=== PATIENT | female | born 1950 | race Caucasian/White ===

== ENCOUNTER 2024-10-28 18:10 | Inpatient (IN) | payer OTHER, SELFPAY ==
[2024-10-27] VITALS (9 sets, daily range): BP systolic 120–176; BP diastolic 48–89; BMI 27.8
[2024-10-27 16:35] LABS: Hematocrit 41.6 % (37.0-47.0); Hemoglobin 13.7 g/dL (12.0-16.0); Mean Corp Hgb Conc. 32.9 g/dL (33.0-37.0); Mean Corpuscular Volume 93.7 fL (81.0-99.0); Nucleated Red Blood Cells % 0 %; Platelet Count 135 10^3/uL (130-400); Red Cell Dist. Width 13.9 % (11.5-14.5)
[2024-10-27 16:42] LABS: ALT (SGPT) 15 U/L (0-35); AST (SGOT) 22 U/L (14-36); Albumin 4.6 g/dl (3.5-5.0); Alkaline Phosphatase 61 U/L (38-126); Blood Urea Nitrogen 12 mg/dl (7-17); Calcium 9.1 mg/dl (8.4-10.2); Carbon Dioxide 24 mmol/L (22-30); Chloride 104 mmol/L (98-107); Estimated Creatinine Clearance 70 ml/min; Glucose 156 mg/dl (70-99); Lipase 131 U/L (23-300); Potassium 4.0 mmol/L (3.5-5.1); Sodium 135 mmol/L (135-145); Total Protein 7.3 g/dl (6.3-8.2); eGFR > 60.00
[2024-10-27] MEDS: TYLENOL 650 MG PO (17:16)
--- NOTE | 2024-10-27 17:16 | ED.GENMED ---
History of Present Illness
General
Chief Complaint: Fever
Source: patient and family
Time Seen by Provider: 10/27/24 17:00
History of Present Illness
History of Present Illness:
74-year-old female presents to the emergency room for evaluation of fever, chills, weakness, dizziness and diarrhea. Symptoms began yesterday. Last episode of diarrhea was about 6 hours ago. No abdominal pain. No sore throat. Patient denies any
sick contacts. She denies any travel. She denies any recent use of antibiotics.
Phy Exam
Physical Exam
Physical Exam:
General: Awake, Alert, Oriented X3. Appears uncomfortable from fever and chills
Vitals: Febrile
Head: Atraumatic
Eyes: Pupils equal, EOMI
Throat: Airway intact, no exudates
Neck: Trachea midline
Lungs: Clear and equal b/l
Heart: Regular rate, no murmurs
Abd: Soft, no tenderness to palpation, No pulsatile mass
Neuro: Nonfocal
Skin: Warm, dry, no rash
Extremities: pulses equal b/l, no edema
Sepsis
Sepsis Screening
Sepsis Assessment: Sepsis
Sepsis Screen
Sepsis Screen: Sepsis
Date: 10/27/24
Time: 22:41
Course
Orders/Labs/Results
Orders:
Orders
10/27/24 15:49
Electrocardiogram (*1) Urgent
Reason for Study: Chest Pain
EKG- Treatment ONCE
10/27/24 16:13
Complete Blood Count/With Diff Urgent
Comprehensive Metabolic Panel Urgent
Lactic Acid Urgent
Lipase Urgent
Blood Culture Routine
ADELITA Source: Blood/Venous
Specimen Description:
10/27/24 17:04
COVID-19 Antigen Urgent
Source: Nasal Swab
10/27/24 17:11
Acetaminophen [Tylenol] 650 mg PO NOW STA
10/27/24 17:12
0.9% Sodium Chloride 1000 ml [Nss] 1,000 ml IV BOLUS
10/27/24 17:13
STOOL [C difficile Antigen & Toxins] Urgent
ADELITA Source: Feces/Stool
Specimen Description:
Stool Culture Urgent
ADELITA Source: Feces/Stool
Specimen Description:
10/27/24 17:16
Urinalysis Reflex To Culture Urgent
Date Specimen was Collected: 10/27/24
Time Specimen was Collected: 21:24
10/27/24 19:24
CR Chest - 2 Views Urgent
Comment:
Reason For Exam: fever, hypoxia
10/27/24 20:25
CT Abd/pelvis W Iv Cont Urgent
Comment:
Reason For Exam: fever, abd pain
10/27/24 20:34
Ibuprofen [Motrin] 400 mg PO NOW STA
10/27/24 21:16
Norovirus by PCR Urgent
ADELITA Source: Feces/Stool
Specimen Description:
10/27/24 21:25
Lactate Level [Lactic Acid] Urgent
10/27/24 21:34
Admit/Transfer Patient As Directed
Co-Sign Provider:
Level of Care: Observation services
Assign to:: Medical/Surgical
Physician / Group: Htay
Diagnosis: Colitis
PRN Pain Medication Management As Directed
May give lesser potent ordered pain med per pt: Yes
preference::
Protocol:: Medication orders for pain may be administered in a
manner that supports deferring to patient preference
when the pt is:
- Requesting an ordered lesser potent pain medication.
Least to most potent pain medications are defined
as: acetaminophen < NSAID < tramadol < opioids
(morphine, oxycodone, hydromorphone).
- Requesting a lesser dose of the same medication IF
ORDERED.
- Requesting a less intrusive route of administration
if both routes are prescribed by the provider (PO <
IV).
10/27/24 21:42
Code Status As Directed
Resuscitation Status: Full Code
Abnormal Lab Results
10/27/24
16:13
WBC 4.7 L 10^3/uL
(4.8-10.8)
MCHC 32.9 L g/dL
(33.0-37.0)
MPV 10.9 H fL
(7.4-10.4)
Absolute Lymphs (auto) 0.7 L 10^3/uL
(1.2-3.4)
Neutrophils % 80.5 H %
(42.2-75.2)
Lymphocytes % 14.7 L %
(20.5-51.1)
Glucose 156 H mg/dl
(70-99)
10/27/24 16:13
10/27/24 16:13
Vital Signs
Initial and Last Documented VS:
Initial Vital Signs
Temp Pulse Resp BP Pulse Ox
102.4 F H 105 16 154/89 94
10/27/24 16:02 10/27/24 16:02 10/27/24 16:02 10/27/24 16:02 10/27/24 16:02
Last Documented Vital Signs
Temp Pulse Resp BP Pulse Ox
102 F H 85 17 130/56 94
10/27/24 19:22 10/27/24 21:52 10/27/24 21:30 10/27/24 21:52 10/27/24 21:52
MDM/Problems Addressed
Differential Diagnosis Includes:
Pneumonia, UTI, COVID, other viral illness, infectious diarrhea either bacterial or viral
MDM/Problems Addressed:
Patient presents with high fever, fatigue, chills and diarrhea. Patient seems very tired but does answer questions appropriately. Workup here shows a mildly low white count of 4.7. Chemistries are unremarkable. Chest x-ray shows no acute
abnormality. CT of the abdomen pelvis shows mild colitis. Patient requires hospitalization given her profound weakness and mild hypoxia. I did not initiate antibiotics as I believe it is very likely this may be a viral illness. Will defer
antibiotic to the hospitalist. Patient received IV fluids, antipyretics
*Radiology
Radiology exam reviewed: radiology read reviewed
*Pulse Oximetry
SaO2: 88
Oxygen Mode of Delivery: Room air
Patient hypoxic: yes
*EKG
Interpreted by ED Provider?: Yes
Interpretation: abnormal
Heart Rate: 105
Rate: tachycardiac
Rhythm: sinus tachycardia
[place]: normal axis
Interval: normal interval
QRS Pattern: normal QRS
Ischemia: no ischemia
*Analysis Evaluator Interpretation
Rate: tachycardiac
Interpretation: abnormal
Rhythm: sinus tachycardia
*Critical Care Note
Total Time (30-74mins, 75-104mins- exclusive of procedures): Not Applicable
ED Attending Note
-
Portions of this chart may have been created with voice recognition software.� Occasional wrong word or��sound alike� substitutions may have occurred due to the inherent limitations of voice recognition software.
Discharge Plan
Departure
Patient Disposition: Admit
Date of Disposition: 10/27/24
Time of Disposition: 21:13
Admit to: Med/Surg
Presentation/result/management discussed w/ accepting MD/DO: Hospitalist
Condition: Fair
Discharge Problem:
Fever, Diarrhea, Hypoxia
Interventions
Interventions:
*Risk Screen - Suicide Last Done: 10/27/24 16:02
*General Assessment Last Done: 10/27/24 16:02
*Neglect/Abuse Screening Last Done: 10/27/24 16:39
*ED- Fall Risk Assessment Last Done: 10/27/24 18:22
*ED COVID-19 Vaccine History Last Done: 10/27/24 16:02
ED-Skin Assessment Last Done: 10/27/24 16:39
ED- Neurological Assessment Last Done: 10/27/24 16:39
[2024-10-27] MEDS: NSS 1000 IV (17:20)
[2024-10-27 17:27] LABS: COVID-19 Antigen Negative (Negative)
[2024-10-27] MEDS: MOTRIN 400 MG PO (21:10)
--- NOTE | 2024-10-27 21:19 | W.PN.UPDATE ---
Update Note
Progress Note Update
This note serves as an addendum to the H&P by tariff publishing agent ALESSANDRA�Fang QUIROGASonido
HPI
74F no significant PMHX -year-old female presents to the emergency room for evaluation of fever, chills, weakness, dizziness and diarrhea. Symptoms began yesterday. Last episode of diarrhea was about 6 hours ago. No abdominal pain. No sore
throat. Patient denies any sick contacts. She denies any travel. She denies any recent use of antibiotics
VS
10/27/24
16:02 10/27/24
19:22
Temp 102.4 F H 102 F H
Pulse 105
Resp Rate 16
Blood pressure 154/89
SaO2 94
Oxygen Mode of Delivery Room air
PE
Gen: Not toxic
HEENT: anicteric
Neck:supple
Lungs: non labored breathing
Cor: RRR
Abdomen:�Non tender
FUSING MACHINE TENDER: NFND
MS: no edema
Relevant Data
10/27/24 10/27/24
16:13 17:04
WBC 4.7 L
Creatinine 0.7
eGFR > 60.00
SARS-CoV-2 Antigen Negative
EKG
SINUS TACHYCARDIA WITH 1ST DEGREE A-V BLOCK
POSSIBLE LEFT ATRIAL ENLARGEMENT
SEPTAL INFARCT , AGE UNDETERMINED
ABNORMAL ECG
WHEN COMPARED WITH ECG OF 06-Sep-1998 14:27,
MANUAL COMPARISON REQUIRED PREVIOUS ECG IS INCOMPATIBLE
CXR: No acute cardiopulmonary process
CT Abd/pelvis W Iv Cont
- Intestinal tract limited without oral contrast, without intestinal obstruction or free air.
- Some at least suspected thickening of the wall of the large bowel which could represent mild colitis.
- Small hiatal hernia.
- Findings suggesting mild diffuse fatty liver.
- Subcentimeter low-attenuation right renal lesion too small to characterize.
NO PRIOR hospitalist admission:
ASSESSMENT & PLAN
Acute febrile illness with associated SIRS picture ( T 102, HR 100s)
New onset of diarrhea with CT suggestive of mild colitis
Associated fatigue
DDX: Noro virus or other acute viral syndrome
- BCx sent
- NEG Covid
- supportive care with IVF , Tylenol PRN
- Pending stool Cx, Noro vius PCR
- Hold off ABx for now
On episode of POx < 88 Otherwise stable POx mid 90s on RA
NEG CXR
- Observe POx
DVT Px: SQH
Full code
OBS MS
--- NOTE | 2024-10-27 21:46 | HPS.HSE ---
Family Physician
-
Family Physician: [facility] Brothers
Chief Complaint
-
Diarrhea, Fever
History of Present Illness
Patient is a 74 y/o female without significant past medical history who presents with fever and diarrhea. Patient reports diarrhea started yesterday evening after dinner which did include raw salmon. Diarrhea persisted today and began associated
with fever and rigors. She report slight abdominal cramping prior diarrheal episodes. She reports nausea but no vomiting. She denies any bloody diarrhea. Patient notes dizziness and states for a while she felt very out of it. She denies any
recent travel or recent antibiotics. No other family member wit similar symptoms.
Medical History
Past Medical History
Past Medical History: Reports None
Past Surgical History: Reports None
Social History
Tobacco: Non-smoker
Alcohol: Occasional
Family History
Family History: Not pertinent
Allergies / Home Medications
Allergies reflects when Allergies were last updated in [facility].
Home Medications with original date entered in [facility]
Allergy/Medication List:
Allergies
Allergy/AdvReac Type Severity Reaction Status Date / Time
No Known Allergies Allergy Unverified 10/27/24 16:04
Home Medications
No Meds [No Current Medications] 10/27/24
Review of Systems
-
A 12 point ROS was completed and negative except as noted: Yes
Constitutional: Reports Fever and Chills
Respiratory: Denies Cough or Trouble Breathing
Cardiac: Denies Chest Pain or Palpitations
Abdomen/GI: Reports Nausea; Denies Abdominal Pain
Physical Exam
Vital Signs
Vital Signs
Temp Pulse Resp BP Pulse Ox
102 F H 96 17 150/67 94
10/27/24 19:22 10/27/24 18:55 10/27/24 18:45 10/27/24 18:00 10/27/24 19:22
Physical Exam
General: Well Developed, Well Nourished and No Apparent Distress
HEENT: NormoCephalic, Anicteric, Moist mucous membranes and Atraumatic
Respiratory: Clear and Non Labored Respirations; No Wheezes, Rales or Rhonchi
Cardiac: S1/S2, Regular Rhythm, Tachycardia (Slightly) and Murmur
GI: Soft, Non Tender, Non Distended and Normal Bowel Sounds
Rectal: Deferred by Provider
Musculoskeletal: No Clubbing, No Cyanosis and No Edema
Skin: Warm and Dry; No Rash
Neuro: Awake, Alert, Oriented and Nonfocal/grossly intact
Psych: Calm
Laboratory Results
-
10/27/24 16:13
10/27/24 16:13
Laboratory Results
Lactic Acid 1.3 mmol/L (0.7-2.0) 10/27/24 21:25
Total Bilirubin 0.8 mg/dl (0.2-1.3) 10/27/24 16:13
AST 22 U/L (14-36) 10/27/24 16:13
ALT 15 U/L (0-35) 10/27/24 16:13
Alkaline Phosphatase 61 U/L (38-126) 10/27/24 16:13
Lipase 131 U/L (23-300) 10/27/24 16:13
Abd/Pelvis CT:
Intestinal tract limited without oral contrast, without intestinal obstruction or free air. Some at least suspected thickening of the wall of the large bowel which could represent mild colitis.
Data Reviewed
-
CT Scan: Report Reviewed by me
Lab Data: Labs Reviewed by me
Impression/Plan
-
SIRS / Acute Febrile Illness suspect secondary to viral gastroenteritis / colitis
-Continue IVFs
-Allow clear liquids
-Check stool studies
DVT Proph: SC Heparin
Code Status: Full Code
[2024-10-28] VITALS (19 sets, daily range): BP systolic 116–166; BP diastolic 47–73
[2024-10-28] MEDS: NSS 1000 IV ×4 (00:12→18:29)
[2024-10-28] MEDS: TYLENOL 650 MG PO ×4 (01:23→16:09)
[2024-10-28] MEDS: ZOFRAN 4 MG IV ×2 (01:23→19:54)
[2024-10-28 06:59] LABS: Blood Urea Nitrogen 10 mg/dl (7-17); Calcium 8.5 mg/dl (8.4-10.2); Carbon Dioxide 26 mmol/L (22-30); Chloride 104 mmol/L (98-107); Estimated Creatinine Clearance 70 ml/min; Glucose 137 mg/dl (70-99); Magnesium 1.5 mg/dl (1.6-2.3); Potassium 4.1 mmol/L (3.5-5.1); Sodium 136 mmol/L (135-145); eGFR > 60.00
[2024-10-28 07:45] LABS: Hematocrit 39.7 % (37.0-47.0); Hemoglobin 12.8 g/dL (12.0-16.0); Mean Corp Hgb Conc. 32.2 g/dL (33.0-37.0); Mean Corpuscular Volume 95.7 fL (81.0-99.0); Platelet Count 129 10^3/uL (130-400); Red Cell Dist. Width 14.4 % (11.5-14.5)
[2024-10-28] MEDS: HEPARIN 5000 UNITS SC ×2 (08:41→19:47)
--- NOTE | 2024-10-28 08:52 | CM ---
CM reviewed chart and met with pt, and 2 daughters bedside in ED. Lives with , 2 story home, [address], has first floor half BA, full flight to second floor BR/full BA. Independent in ADLs, personal care and ambulation at baseline. Still
driving. NO DME.
No hx VN/SNF
PCP: [facility] Brothers
Pharmacy: [facility]
Iglesias reviewed and signed.
CM will continue to follow for any discharge planning needs.
[2024-10-28 12:13] LABS: Hematocrit 37.0 % (37.0-47.0); Hemoglobin 12.2 g/dL (12.0-16.0); Mean Corp Hgb Conc. 33.0 g/dL (33.0-37.0); Mean Corpuscular Volume 94.9 fL (81.0-99.0); Platelet Count 105 10^3/uL (130-400); Red Cell Dist. Width 14.4 % (11.5-14.5)
[2024-10-28 13:27] LABS: Absolute Neutrophils -Man Diff 1.6 10^3/uL (1.4-6.5); Normal RBC Morphology Yes; Platelets Checked Yes; Total Cells Counted 100
[2024-10-28 15:58] LABS: Urine Character Clear (Clear)
[2024-10-28 16:14] LABS: Urine Red Blood Cell 0-2 /HPF (0-2); Urine White Cell 0-2 /HPF (0-5)
--- NOTE | 2024-10-28 17:59 | W.PN.HOSP.TC ---
Today's Communication/Plan
-
Patient not yet improving, still very weak, developing leukopenia, thrombocytopenia, remains febrile, will change to inpatient and start antibiotics and workup lab abnormalities
Assessment / Plan
Assessment / Plan
74F with:
Acute febrile illness:
viral gastroenteritis, diarrhea
CT suggestive of mild colitis
Associated fatigue
DDX: Noro virus or other acute viral syndrome
- BCx NGTD
- NEG Covid. C. difficile negative. Norovirus negative. Salmonella, Shigella, Campylobacter, Shigella pending
- supportive care with IVF , Tylenol PRN
Leukopenia, neutrophilia:
SIRS versus sepsis
Start empiric Flagyl
IVF
Mild thrombocytopenia:
Plt dropping from 135-105
Hold heparin
Abnormal UA:
2+ ketone, 2+ blood, negative RBC 2+
Creatinine is WNL
DVT PPx
Hold heparin, SCDs
Anticipated Discharge: 24 - 48 hours
Subjective/Interval History
-
Date of Service: October 28, 2024
Patient feeling weak, still having lots of diarrhea, not feeling up to eating. Daughter and at bedside note that she is normally on the treadmill every day.
Objective Data
-
Labs:
Laboratory Results
10/28/24 10/28/24
06:15 11:50
WBC 2.7 L 2.5 L
Hgb 12.8 12.2
Hct 39.7 37.0
Plt Count 129 L 105 L
Sodium 136
Potassium 4.1
Chloride 104
Carbon Dioxide 26
BUN 10
Creatinine 0.7
Glucose 137 H
Calcium 8.5
Vital Signs:
Vital Signs
Temp Pulse Resp BP Pulse Ox
101.1 F H 96 24 136/47 92
10/28/24 15:46 10/28/24 17:30 08/18/25 17:30 10/28/24 17:00 10/28/24 17:30
Review of Systems
-
All other systems: Reviewed and negative
Physical Exam
-
General: No Apparent Distress and Fever
HEENT: Moist Mucous Membranes, Anicteric and PERRLA
Respiratory: Clear to Auscultation; Negative Wheezes, Rales or Rhonchi
Cardiac: Regular Rhythm and S1/S2; Negative Murmur, Rub or Gallop
GI: Soft, Nontender, Nondistended and Normal Bowel Sounds
Musculoskeletal: No Edema
Skin: Warm and Dry; Negative Rash, Ulcers or Lesions
Neuro: Awake and AO x 3
Hematologic / Lymphatic: No Lymphadenopathy
Psych: Calm
Data Reviewed
-
CT Scan: Report Reviewed by me
Labs: Labs Reviewed by me, Discussed with Patient and Discussed with Family
[2024-10-28] MEDS: FLAGYL 500 MG 100 IV (19:47)
[2024-10-28] MEDS: OFIRMEV 100 IV (21:19)
[2024-10-29] MEDS: CALDOLOR 104 MG IV (00:20)
[2024-10-29] MEDS: NSS 1000 IV (02:33)
[2024-10-29] MEDS: FLAGYL 500 MG 100 IV ×2 (04:02→11:43)
[2024-10-29 07:00] VITALS: BP 148/58
[2024-10-29 07:22] LABS: Hematocrit 34.8 % (37.0-47.0); Hemoglobin 11.5 g/dL (12.0-16.0); Mean Corp Hgb Conc. 33.0 g/dL (33.0-37.0); Mean Corpuscular Volume 93.8 fL (81.0-99.0); Platelet Count 93 10^3/uL (130-400); Red Cell Dist. Width 13.8 % (11.5-14.5)
[2024-10-29 07:34] LABS: ALT (SGPT) 12 U/L (0-35); AST (SGOT) 24 U/L (14-36); Albumin 3.0 g/dl (3.5-5.0); Alkaline Phosphatase 40 U/L (38-126); Blood Urea Nitrogen 6 mg/dl (7-17); Calcium 7.7 mg/dl (8.4-10.2); Carbon Dioxide 22 mmol/L (22-30); Chloride 107 mmol/L (98-107); Estimated Creatinine Clearance 81 ml/min; Glucose 124 mg/dl (70-99); Potassium 3.5 mmol/L (3.5-5.1); Sodium 133 mmol/L (135-145); Total Protein 5.3 g/dl (6.3-8.2); eGFR > 60.00
[2024-10-29] MEDS: HEPARIN 5000 UNITS SC (07:38)
[2024-10-29] MEDS: ZOFRAN 4 MG IV ×2 (07:39→16:57)
[2024-10-29 08:22] LABS: Absolute Neutrophils -Man Diff 1.8 10^3/uL (1.4-6.5)
[2024-10-29 08:23] LABS: Normal RBC Morphology No; Platelets Checked Yes
[2024-10-29 08:24] LABS: Anisocytosis 1+; Basophilic Stippling 1+; Hypochromasia 1+; Polychromasia 1+; Spherocytes 1+; Total Cells Counted 100
[2024-10-29] MEDS: LR 1000 IV ×2 (10:29→23:07)
[2024-10-29] MEDS: TORADOL 15 MG IV ×3 (10:30→23:08)
[2024-10-29] MEDS: IMODIUM 2 MG PO ×2 (10:30→16:54)
--- NOTE | 2024-10-29 12:33 | W.PN.HOSP.TC ---
Today's Communication/Plan
-
Start Imodium for diarrhea, try oral diet if she tolerates or remain on bowel rest, continue LR, continue Flagyl and consult ID
Assessment / Plan
Assessment / Plan
74F with:
Sepsis/Acute febrile illness:
viral gastroenteritis, nausea/diarrhea with Leukopenia, neutrophilia
CT suggestive of mild colitis
Associated fatigue
- BCx NGTD
- NEG Covid. C. difficile negative. Norovirus negative. Salmonella, Shigella, Campylobacter, Shigella pending
ESR 21, CRP pending
Continue empiric Flagyl
Consulted infectious disease given degree of bandemia
- supportive care with IVF changed to LR, Tylenol PRN, Toradol as needed, start Bentyl, start Imodium
Mild thrombocytopenia:
Plt dropping from 135-105-->93 in 2 days
Hold heparin
could be from infection
Abnormal UA:
2+ ketone, 2+ blood, negative RBC 2+
Creatinine is WNL
DVT PPx
Hold heparin, SCDs
Anticipated Discharge: 24 - 48 hours
Subjective/Interval History
-
Date of Service: October 29, 2024
Patient still feeling weak, having diarrhea, nauseous with any oral intake
Objective Data
-
Labs:
Laboratory Results
10/29/24 10/29/24
06:35 12:15
WBC 2.7 L Pending
Hgb 11.5 L Pending
Hct 34.8 L Pending
Plt Count 93 L Pending
Sodium 133 L Pending
Potassium 3.5 Pending
Chloride 107 Pending
Carbon Dioxide 22 Pending
BUN 6 L Pending
Creatinine 0.6 Pending
Glucose 124 H Pending
Calcium 7.7 L Pending
Total Bilirubin 0.4
AST 24
ALT 12
Alkaline Phosphatase 40
Vital Signs:
Vital Signs
Temp Pulse Resp BP Pulse Ox
98.5 F 69 16 148/58 97
10/29/24 07:00 10/29/24 07:00 10/29/24 07:00 10/29/24 07:00 10/29/24 07:00
I&O
10/28/24 10/29/24 10/30/24
06:59 06:59 06:59
Intake Total 480 / 480
Balance 480 / 480
Review of Systems
-
All other systems: Reviewed and negative
Physical Exam
-
General: No Apparent Distress, Fever and Sweats
HEENT: Moist Mucous Membranes, Anicteric and PERRLA
Respiratory: Clear to Auscultation; Negative Wheezes, Rales or Rhonchi
Cardiac: Regular Rhythm and S1/S2; Negative Murmur, Rub or Gallop
GI: Soft, Nontender, Nondistended and Normal Bowel Sounds
Musculoskeletal: No Edema
Skin: Warm and Dry; Negative Rash, Ulcers or Lesions
Neuro: Awake and AO x 3
Hematologic / Lymphatic: No Lymphadenopathy
Psych: Calm
Data Reviewed
-
CT Scan: Report Reviewed by me
Labs: Labs Reviewed by me, Discussed with Patient and Discussed with Family
[2024-10-29 13:09] LABS: Blood Urea Nitrogen 6 mg/dl (7-17); Calcium 8.2 mg/dl (8.4-10.2); Carbon Dioxide 22 mmol/L (22-30); Chloride 105 mmol/L (98-107); Estimated Creatinine Clearance 81 ml/min; Glucose 117 mg/dl (70-99); Potassium 3.4 mmol/L (3.5-5.1); Sodium 132 mmol/L (135-145); eGFR > 60.00
[2024-10-29 13:18] LABS: Hematocrit 33.9 % (37.0-47.0); Hemoglobin 11.2 g/dL (12.0-16.0); Mean Corp Hgb Conc. 33.0 g/dL (33.0-37.0); Mean Corpuscular Volume 94.2 fL (81.0-99.0); Platelet Count 102 10^3/uL (130-400); Red Cell Dist. Width 13.6 % (11.5-14.5)
[2024-10-29 13:56] LABS: Absolute Neutrophils -Man Diff 2.0 10^3/uL (1.4-6.5); Platelets Checked Yes
[2024-10-29 13:57] LABS: Normal RBC Morphology Yes; Total Cells Counted 100
[2024-10-29] MEDS: BENTYL 10 MG PO ×3 (14:19→22:22)
[2024-10-29 15:00] VITALS: BP 160/78
[2024-10-29 15:02] LABS: C-Reactive Protein > 270.00 mg/L (0.0-10.00)
--- NOTE | 2024-10-29 16:30 | CON.ID ---
Consultation
-
Date/Time Consultation Requested: October 29, 2024 1153
Date/Time Consultation Performed: October 29, 2024 1630
Requesting Provider: Jayshree Alva
Performing Provider: Dr. Josefina Inman
Reason for Consultation: Gastroenteritis with leukopenia and bandemia
Chief Complaint / Past History
Chief Complaint
Diarrhea
History of Present Illness
History obtained predominantly from her daughter at bedside. She is a 74-year-old female with dyslipidemia who presented to the ER October 27 due to diarrhea. Per daughter diarrhea started the evening of October 26. The next morning diarrhea
persisted with cramping abdominal pain, nausea. Patient had shaking chills. She was very weak. Stool is nonbloody. No other symptoms headache, cough, shortness of breath, or urine symptoms. No one else in the family ill. No recent travel. On
October 26, her bought raw salmon from [employer]. The family (except daughter) ate raw salmon with the was Wasabi sauce. The salmon was purchased from the [employer] department and not from the [employer] section. No one else with GI symptoms. Per
daughter, patient and her eats raw salmon all the time.
In the ER temperature 102.4. CT of the abdomen pelvis without oral contrast showed mild colitis. UA negative. Blood culture x 1 negative to date. Chest x-ray negative. Yesterday metronidazole was started. She is also on Imodium as needed. She
has developed leukopenia and thrombocytopenia during hospital stay. Patient is still not feeling well with nausea, abdominal cramping, and diarrhea. Fever persisted.
Past History
Past Medical History: None
Additional Past Medical History:
Dyslipidemia
Pre-diabetes
Past Surgical History: None
Allergy History:
No Known Allergies Allergy (Unverified 10/27/24 16:04)
Medications Reviewed: Yes
Current Antibiotics:
Metronidazole
Social History
Tobacco: Non-Smoker
Alcohol: Occasional
Drug: None
Personal:
Living: With Family
Family History
Family History: Not Pertinent
Review of Systems
Review of Systems
General: Fever, Chills and Change in Appetite
HEENT: Negative Sinus Problems or Pharyngitis
Cardiovascular: Negative Chest Pain or Dyspnea
Respiratory: Negative Dyspnea or Cough
Gasteroenterology: Nausea and Diarrhea; Negative Vomiting
Endocrine: Weakness
Musculoskeletal: Negative Arthralgias
Neurological: Dizziness
All systems: All other systems were reviewed and were negative
Vital Signs
Temp Pulse Resp BP Pulse Ox
99.0 F 81 16 160/78 98
10/29/24 15:00 10/29/24 15:00 10/29/24 15:00 10/29/24 15:00 10/29/24 15:00
Selected Entries
10/28/24
22:02
Temp 102.3 F H
Physical Exam
Physical Exam
Constitutional: Acutely Ill
Head: Other (No frontal or max or sinus tenderness)
Eyes: No Conjunctival Hemorrhage and Sclera Anicteric
Cardiovascular: Regular Rate and S1/S2
Pulmonary: Clear
Gastrointestinal: Soft, Non Tender, Non Distended and Normal Bowel Sounds
Genito-Urinary: Negative CVA Tenderness
Extremities: Negative Edema
Neurological: Other (Lethargic)
Lab / Diagnostic Study Results
10/29/24 12:15
10/29/24 12:15
Abs Immat Gran (auto) 0.0 10^3/uL (0-0.05) 10/27/24 16:13
Absolute Neuts (auto) 3.8 10^3/uL (1.4-6.5) 10/27/24 16:13
Absolute Lymphs (auto) 0.7 10^3/uL (1.2-3.4) L 10/27/24 16:13
Absolute Monos (auto) 0.2 10^3/uL (0.1-0.6) 10/27/24 16:13
Absolute Basos (auto) 0.0 10^3/uL (0-0.2) 10/27/24 16:13
Total Counted 100 10/29/24 12:15
Immature Gran % 0.2 % (0-0.5) 10/27/24 16:13
Neutrophils % 80.5 % (42.2-75.2) H 10/27/24 16:13
Lymphocytes % 14.7 % (20.5-51.1) L 10/27/24 16:13
Monocytes % 3.6 % (1.7-9.3) 10/27/24 16:13
Eosinophils % 0.6 % (0-6) 10/27/24 16:13
Basophils % 0.4 % (0-2) 10/27/24 16:13
Abs Neuts (Manual) 2.0 10^3/uL (1.4-6.5) 10/29/24 12:15
Segmented Neutrophils 46 % (42-75) 10/29/24 12:15
Band Neutrophils 23 % (0-3) H D 10/29/24 12:15
Lymphocytes (Manual) 18 % (20-51) L 10/29/24 12:15
ESR 21 mm/hour (0-20) H 10/29/24 06:35
Lactic Acid 1.3 mmol/L (0.7-2.0) 10/27/24 21:25
C-Reactive Protein > 270.00 mg/L (0.0-10.00) H 10/29/24 06:35
Ur Squamous Epith Cells 3-5 /LPF (Few) 10/28/24 15:50
Microbiology Results
Micro:
10/27/24 16:13 Blood Culture - Preliminary
Blood/Venous No Growth in 48 hours- Final report to follow
10/28/24 06:15 Salmonella/Shigella Culture - Preliminary
Feces/Stool Culture in Progress
Campylobacter Culture - Preliminary
Culture in Progress
Shiga Toxin Test - Pending
10/27/24 23:50 - Final
Feces/Stool Negative for Norovirus GI and GII.
10/28/24 06:15 C. difficile GDH Antigen & Toxins - Final
Feces/Stool Negative for toxigenic C.difficile
10/27/24 CT a/p wo po contrast: Intestinal tract limited without oral contrast, without intestinal obstruction or free air. Some at least suspected thickening of the wall of the large bowel which could represent mild colitis.
10/27/24 CXR: No acute cardiopulmonary process.
Assessment / Plan
# Acute gastroenteritis with nausea, abd cramping, nonbloody diarrhea
onset after ingesting raw seafood
# Fever
# Leukopenia, thrombocytopenia due to sepsis
- blood cx x 1 neg. CXR neg
- C. diff neg. Norovirus neg.
- Stool cx pending.
- CT a/p wo po contrast: mild colitis
- DC metronidazole
- DC Imodium
- Start azithromycin 500mg IV q24h.
- Trend temps/CBC.
[2024-10-29] MEDS: ZITHROMAX INFUSION 250 IV (17:54)
[2024-10-29 23:00] VITALS: BP 179/78
[2024-10-30 00:15] VITALS: BMI 27.7
[2024-10-30 07:23] LABS: Hematocrit 34.6 % (37.0-47.0); Hemoglobin 11.6 g/dL (12.0-16.0); Mean Corp Hgb Conc. 33.5 g/dL (33.0-37.0); Mean Corpuscular Volume 92.0 fL (81.0-99.0); Platelet Count 105 10^3/uL (130-400); Red Cell Dist. Width 13.2 % (11.5-14.5)
[2024-10-30 07:34] LABS: ALT (SGPT) 16 U/L (0-35); AST (SGOT) 23 U/L (14-36); Albumin 2.7 g/dl (3.5-5.0); Alkaline Phosphatase 41 U/L (38-126); Blood Urea Nitrogen 9 mg/dl (7-17); Calcium 8.1 mg/dl (8.4-10.2); Carbon Dioxide 22 mmol/L (22-30); Chloride 105 mmol/L (98-107); Estimated Creatinine Clearance 70 ml/min; Glucose 117 mg/dl (70-99); Potassium 3.5 mmol/L (3.5-5.1); Sodium 132 mmol/L (135-145); Total Protein 5.0 g/dl (6.3-8.2); eGFR > 60.00
--- NOTE | 2024-10-30 07:36 | DOWNTIME ---
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 Downtime documentation of patient's care, including medication administrations, has been reconciled in the electronic record per guidelines. Refer to the
patient's paper chart under the miscellaneous tab to see printed paper medication records and downtime forms.
[2024-10-30 07:44] VITALS: BP 164/80
[2024-10-30] MEDS: BENTYL 10 MG PO ×4 (07:56→21:35)
[2024-10-30] MEDS: LR 1000 IV ×2 (07:56→16:58)
[2024-10-30] MEDS: ZOFRAN 4 MG IV (08:06)
[2024-10-30 08:46] LABS: Absolute Neutrophils -Man Diff 1.6 10^3/uL (1.4-6.5)
[2024-10-30 08:47] LABS: Normal RBC Morphology Yes; Platelets Checked Yes; Total Cells Counted 100
[2024-10-30] MEDS: NORVASC 2.5 MG PO (10:59)
--- NOTE | 2024-10-30 11:54 | W.PN.HOSP.TC ---
Addendum entered and electronically signed by Jayshree Cheney MD 10/30/24 14:22:
Elevated BP:
not on meds at home
amlodipine 2.5mg daily
Original Note:
Today's Communication/Plan
-
Continue IV fluids, IV antibiotics, advance diet as tolerated
Assessment / Plan
Assessment / Plan
74F with:
Sepsis/Acute febrile illness:
viral gastroenteritis, nausea/diarrhea with Leukopenia, neutrophilia
CT suggestive of mild colitis
Associated fatigue
- BCx NGTD
- NEG Covid. C. difficile negative. Norovirus negative. Salmonella, Shigella, Campylobacter, Shigella pending
ESR 21, CRP elevated to 270
Continue empiric antibiotics changed from Flagyl to azithromycin by ID
Bandemia improving.
- supportive care with IVF changed to LR, Tylenol PRN, Toradol as needed, continue Bentyl
Mild thrombocytopenia:
Plt dropping from 135-105-->93, now stabilizing-->103 -->105
Hold heparin
[place] to be from infection
Abnormal UA:
2+ ketone, 2+ blood, negative RBC 2+
Creatinine is WNL
CK is within normal limit
Mild hyponatremia, asymptomatic
IVF
Continue to monitor BMP
DVT PPx
Hold heparin, SCDs
Anticipated Discharge: 24 - 48 hours
Subjective/Interval History
-
Date of Service: October 30, 2024
Patient seen in a.m., daughter at bedside. Ate some cream of rice cereal, not currently feeling nauseous or vomiting. Abdominal pain feels better. Still having diarrhea, loose watery, green nonbloody. Still feeling a bit weak but a little
better. Denies use of any vitamins or supplements or nonprescription medicines. Has not been on blood pressure medicine before. No fever overnight
Objective Data
-
Labs:
Laboratory Results
10/30/24
06:46
WBC 3.2 L
Hgb 11.6 L
Hct 34.6 L
Plt Count 105 L
Sodium 132 L
Potassium 3.5
Chloride 105
Carbon Dioxide 22
BUN 9
Creatinine 0.7
Glucose 117 H
Calcium 8.1 L
Total Bilirubin 0.4
AST 23
ALT 16
Alkaline Phosphatase 41
Vital Signs:
Vital Signs
Temp Pulse Resp BP Pulse Ox
98.5 F 71 14 159/73 98
10/30/24 07:44 10/30/24 10:59 10/30/24 07:44 10/30/24 10:59 10/30/24 07:44
I&O
10/29/24 10/30/24 10/31/24
06:59 06:59 06:59
Intake Total 480 / 480 340 / 340
Balance 480 / 480 340 / 340
Review of Systems
-
All other systems: Reviewed and negative
Physical Exam
-
General: No Apparent Distress, Fever and Sweats
HEENT: Moist Mucous Membranes, Anicteric and PERRLA
Respiratory: Clear to Auscultation; Negative Wheezes, Rales or Rhonchi
Cardiac: Regular Rhythm and S1/S2; Negative Murmur, Rub or Gallop
GI: Soft, Nontender, Nondistended and Normal Bowel Sounds
Musculoskeletal: No Edema
Skin: Warm and Dry; Negative Rash, Ulcers or Lesions
Neuro: Awake and AO x 3
Hematologic / Lymphatic: No Lymphadenopathy
Psych: Calm
Data Reviewed
-
CT Scan: Report Reviewed by me
Labs: Labs Reviewed by me, Discussed with Patient and Discussed with Family
--- NOTE | 2024-10-30 14:03 | W.PN.ID1 ---
Date of Service
Date of Service: October 30, 2024
Today's Communication
Continue azithromycin.
Assessment / Plan
# Campylobacter gastroenteritis with nausea, abd cramping, nonbloody diarrhea
onset after ingesting raw seafood
# Fever- resolving
# Leukopenia, thrombocytopenia due to sepsis, improving
- CT a/p wo po contrast: mild colitis
- blood cx x 1 neg. CXR neg
- C. diff neg. Norovirus neg.
- Stool cx Campylobacter
- Continue azithromycin 500mg IV q24h (d2)
- Trend temps/CBC.
Chief Complaint
-: Other (diarrhea)
Subjective / Review of Systems
Pt feels same. Weak and tired. + nausea. Diarrhea at 2:30 am and 7:30 am. Abd cramping with diarrhea.
and daughter at bedside.
Vital Signs / Physical Exam
Vital Signs
Vital Signs
Temp Pulse Resp BP Pulse Ox
98.5 F 71 14 159/73 98
10/30/24 07:44 10/30/24 10:59 10/30/24 07:44 10/30/24 10:59 10/30/24 07:44
Physical Exam
Constitutional: Acutely Ill
Cardiovascular: Regular Rate and S1/S2
Pulmonary: Clear
Gastrointestinal: Soft, Non Tender and Distended (mild)
Extremities: Negative Edema
Neurological: AO x 3
Objective Data
Lab Data
Lab Results
10/30/24 06:46
10/30/24 06:46
ESR 21 mm/hour (0-20) H 10/29/24 06:35
Estimated Creat Clear 70 ml/min 10/30/24 06:46
Lactic Acid 1.3 mmol/L (0.7-2.0) 10/27/24 21:25
Total Bilirubin 0.4 mg/dl (0.2-1.3) 10/30/24 06:46
AST 23 U/L (14-36) 10/30/24 06:46
ALT 16 U/L (0-35) 10/30/24 06:46
Alkaline Phosphatase 41 U/L (38-126) 10/30/24 06:46
C-Reactive Protein > 270.00 mg/L (0.0-10.00) H 10/29/24 06:35
Most recent labs reviewed.
Micro Results:
10/28/24 06:15 Salmonella/Shigella Culture - Preliminary
Feces/Stool Culture in Progress
Campylobacter Culture - Final
Campylobacter species
Shiga Toxin Test - Pending
10/27/24 16:13 Blood Culture - Preliminary
Blood/Venous No Growth in 48 hours- Final report to follow
10/27/24 23:50 - Final
Feces/Stool Negative for Norovirus GI and GII.
10/28/24 06:15 C. difficile GDH Antigen & Toxins - Final
Feces/Stool Negative for toxigenic C.difficile
10/27/24 CT a/p wo po contrast: Intestinal tract limited without oral contrast, without intestinal obstruction or free air. Some at least suspected thickening of the wall of the large bowel which could represent mild colitis.
10/27/24 CXR: No acute cardiopulmonary process.
[2024-10-30 15:37] VITALS: BP 173/68
--- NOTE | 2024-10-30 15:38 | CM ---
Spoke with Lexus dgt at bedside. Pt is sleeping.
Lexus said she will be able to drive her home at discharge.
Offered VN dgt declined need .
ID involved.Continue IV antibiotics.
PLAN Home no needs
[2024-10-30] MEDS: ZITHROMAX INFUSION 250 IV (17:00)
[2024-10-30 23:00] VITALS: BP 158/63
[2024-10-31] MEDS: BENADRYL 25 MG PO (05:05)
--- NOTE | 2024-10-31 05:18 | W.PN.UPDATE ---
Update Note
Progress Note Update
-Rash on the back, not itchy,no swelling or sob, daughter believes that is a reaction from the amlodipine that received yesterday in am (one dose ) and was already d/c.
-Patient also is receiving azithromycin 500mg q24hrs received 2 doses, last time received 5pm yesterday. Rash could be a reaction?
-Will give one dose of Benadryl and update morning team.
--- NOTE | 2024-10-31 05:26 | PTCARENOTE ---
Daughter alerted this RN to new-onset hives noted on the left side of the patient's back. Assessment revealed visible raised, red welts along the left flank. Patient denies shortness of breath, swelling, or other symptoms. STUDENT SUPPORT COUNSELOR notified and Benadryl
was ordered, See MAR for administration. Daughter expressed concern that the reaction may be related to the recent dose of amlodipine. STUDENT SUPPORT COUNSELOR also considering Azithromycin as a possible contributing factor. Plan of care remains ongoing with continued
monitoring for any progression or new symptoms.
[2024-10-31 07:56] VITALS: BP 154/65
[2024-10-31] MEDS: BENTYL 10 MG PO (08:17)
[2024-10-31 08:25] LABS: Hematocrit 34.0 % (37.0-47.0); Hemoglobin 11.8 g/dL (12.0-16.0); Mean Corp Hgb Conc. 34.7 g/dL (33.0-37.0); Mean Corpuscular Volume 90.4 fL (81.0-99.0); Platelet Count 134 10^3/uL (130-400); Red Cell Dist. Width 12.9 % (11.5-14.5)
[2024-10-31 08:41] LABS: Nucleated Red Blood Cells % 0 %
[2024-10-31 08:49] LABS: ALT (SGPT) 28 U/L (0-35); AST (SGOT) 42 U/L (14-36); Albumin 2.7 g/dl (3.5-5.0); Alkaline Phosphatase 44 U/L (38-126); Blood Urea Nitrogen 6 mg/dl (7-17); Calcium 8.3 mg/dl (8.4-10.2); Carbon Dioxide 26 mmol/L (22-30); Chloride 104 mmol/L (98-107); Estimated Creatinine Clearance 81 ml/min; Glucose 110 mg/dl (70-99); Magnesium 1.8 mg/dl (1.6-2.3); Potassium 3.2 mmol/L (3.5-5.1); Sodium 133 mmol/L (135-145); Total Protein 4.9 g/dl (6.3-8.2); eGFR > 60.00
[2024-10-31] MEDS: KCL ELIXIR 40 MEQ PO (10:07)
--- NOTE | 2024-10-31 10:21 | W.PN.ID1 ---
Date of Service
Date of Service: October 31, 2024
Today's Communication
Last day of abx - levofloxacin
Assessment / Plan
# Campylobacter gastroenteritis, onset after ingesting raw seafood
# Fever- resolved
# Leukopenia, thrombocytopenia due to sepsis, improving
# Drug rash due to Azithromycin
- CT a/p wo po contrast: mild colitis
- blood cx x 1 neg. CXR neg
- C. diff neg. Norovirus neg.
- Stool cx Campylobacter
- Clinically improving
- DC azithromycin (s/p 2 doses).
- Give 1 dose of levofloxacin 500mg po at 17:00; day 3 of 3 effective tx for Campylobacter.
Chief Complaint
-: Other (diarrhea)
Subjective / Review of Systems
Developed pruritic rash overnight.
Otherwise feeling better. Appetite improving. Nausea resolved.
Diarrhea less frequent. Abdominal cramping resolving.
Vital Signs / Physical Exam
Vital Signs
Vital Signs
Temp Pulse Resp BP Pulse Ox
98 F 64 14 154/65 98
10/31/24 07:56 10/31/24 07:56 10/31/24 07:56 10/31/24 07:56 10/31/24 07:56
Physical Exam
Constitutional: Comfortable
Cardiovascular: Regular Rate and S1/S2
Pulmonary: Clear
Gastrointestinal: Non Tender, Non Distended and Normal Bowel Sounds
Skin: Rash (Diffuse hives on back, maculopapular rash on BUE, abdomen)
Neurological: Awake and Alert
Objective Data
Lab Data
Lab Results
10/31/24 07:50
10/31/24 07:50
ESR 21 mm/hour (0-20) H 10/29/24 06:35
Estimated Creat Clear 81 ml/min 10/31/24 07:50
Lactic Acid 1.3 mmol/L (0.7-2.0) 10/27/24 21:25
Total Bilirubin 0.4 mg/dl (0.2-1.3) 10/31/24 07:50
AST 42 U/L (14-36) H 10/31/24 07:50
ALT 28 U/L (0-35) 10/31/24 07:50
Alkaline Phosphatase 44 U/L (38-126) 10/31/24 07:50
C-Reactive Protein > 270.00 mg/L (0.0-10.00) H 10/29/24 06:35
Most recent labs reviewed.
Micro Results:
10/28/24 06:15 Salmonella/Shigella Culture - Preliminary
Feces/Stool Culture in Progress
Campylobacter Culture - Final
Campylobacter species
Shiga Toxin Test - Final
No E. coli Shiga Toxin 1 or 2 detected.
10/27/24 16:13 Blood Culture - Preliminary
Blood/Venous No Growth in 72 hours- Final report to follow
10/27/24 23:50 - Final
Feces/Stool Negative for Norovirus GI and GII.
10/28/24 06:15 C. difficile GDH Antigen & Toxins - Final
Feces/Stool Negative for toxigenic C.difficile
10/27/24 CT a/p wo po contrast: Intestinal tract limited without oral contrast, without intestinal obstruction or free air. Some at least suspected thickening of the wall of the large bowel which could represent mild colitis.
10/27/24 CXR: No acute cardiopulmonary process.
Care Review
Plan reviewed with: Physician (Dr. Cheney)
--- NOTE | 2024-10-31 10:57 | W.PN.HOSP.TC ---
Today's Communication/Plan
-
benadryl for rash - hold all other meds, change abx to levaquin
pt eval for weakness
possible dc in AM if improving
Assessment / Plan
Assessment / Plan
74F with:
Gastroenteritis due to Campylobacter
nausea/diarrhea after eating raw seafood with Leukopenia, neutrophilia
CT suggestive of mild colitis
Associated fatigue
- BCx NGTD
- NEG Covid. C. difficile negative. Norovirus negative. Salmonella, Shigella pending, Campylobacter positive, Shiga toxin negative
ESR 21, CRP elevated to 270
rash from azithromycin, changed to levofloxacin for day 3/3 directed abx therapy
Bandemia improving.
- s/p IVF, encourage oral intake today, ADAT, Tylenol PRN, Toradol as needed, d/c Bentyl
HTN
BP remains elevated SBP 150s but after discussion with family they opt to hold off further meds (hesitation due to possible reaction to amlodipine (vs azithromycin))
prn hydralazine for SBP>180 while inpt
can f/u with PCP in 1-2 weeks as outpt and have BP recheck
Rash
nonprutitic, urticarial
[place] due to azithromycin vs amlodipine
benadryl prn
stop ccb and changed azithro as above
Mild thrombocytopenia- resolved
Plt dropping from 135-105-->93, now improved-->103 -->105-->134
Hold heparin
[place] to be from infection
Abnormal UA
2+ ketone, 2+ blood, negative RBC 2+
Creatinine is WNL
CK is within normal limit
no urinary symptoms can repete as outpt for clearance
Mild hyponatremia, asymptomatic
s/p IVF
Continue to monitor BMP
Hypokalemia
replete with oral K
DVT PPx
SCDs
Anticipated Discharge: Within 24 hours
Subjective/Interval History
-
Date of Service: October 31, 2024
Pt had rash overnight mostly on back but some improvement with benadryl. Discussed plan of care as below in detail with family at bedside. Diarrhea improved, eating BRAT diet well, they declined to advance diet at this time, pt still feels weak but
okay, no fever, no abd pain. They felt she had dizziness after the amlodipine yesterday.
Objective Data
-
Labs:
Laboratory Results
10/31/24
07:50
WBC 3.5 L
Hgb 11.8 L
Hct 34.0 L
Plt Count 134 D
Sodium 133 L
Potassium 3.2 L
Chloride 104
Carbon Dioxide 26
BUN 6 L
Creatinine 0.6
Glucose 110 H
Calcium 8.3 L
Total Bilirubin 0.4
AST 42 H
ALT 28
Alkaline Phosphatase 44
Vital Signs:
Vital Signs
Temp Pulse Resp BP Pulse Ox
98 F 64 14 154/65 98
10/31/24 07:56 10/31/24 07:56 10/31/24 07:56 10/31/24 07:56 10/31/24 07:56
I&O
10/30/24 10/31/24 11/01/24
06:59 06:59 06:59
Intake Total 340 / 340
Balance 340 / 340
Review of Systems
-
All other systems: Reviewed and negative
Physical Exam
-
General: No Apparent Distress, Fever and Sweats
HEENT: Moist Mucous Membranes, Anicteric and PERRLA
Respiratory: Clear to Auscultation; Negative Wheezes, Rales or Rhonchi
Cardiac: Regular Rhythm and S1/S2; Negative Murmur, Rub or Gallop
GI: Soft, Nontender, Nondistended and Normal Bowel Sounds
Musculoskeletal: No Edema
Skin: Warm, Dry and Rash (erythematous urticarial rash scattered over back, extending to both arms, legs, chest, groin. Not on face or neck. ); Negative Ulcers or Lesions
Neuro: Awake and AO x 3
Hematologic / Lymphatic: No Lymphadenopathy
Psych: Calm
Data Reviewed
-
Labs: Labs Reviewed by me, Discussed with Physician, Discussed with Patient and Discussed with Family
--- NOTE | 2024-10-31 11:13 | CM ---
Spoke with pt and at bedside.
PT ordered awaiting eval.Offered VN to patient she declined at this time.
Offered VN dgt declined need .
ID involved.Continue IV antibiotics.
Family will transport home
PLAN Home no anticipated needs
[2024-10-31 14:17] VITALS: BP 161/67; BP 161/70; PULSE 64; O2SAT 99
[2024-10-31 15:15] VITALS: BP 160/75
[2024-10-31] MEDS: LEVAQUIN 500 MG PO (16:24)
[2024-10-31] MEDS: CLARITIN 10 MG PO (20:58)
[2024-10-31 23:00] VITALS: BP 168/71
[2024-11-01 07:49] VITALS: BP 163/67
[2024-11-01 08:04] LABS: Hematocrit 38.4 % (37.0-47.0); Hemoglobin 13.1 g/dL (12.0-16.0); Mean Corp Hgb Conc. 34.1 g/dL (33.0-37.0); Mean Corpuscular Volume 91.9 fL (81.0-99.0); Platelet Count 161 10^3/uL (130-400); Red Cell Dist. Width 13.3 % (11.5-14.5)
--- NOTE | 2024-11-01 08:14 | W.PN.HOSP.TC ---
Today's Communication/Plan
-
dc home
Assessment / Plan
Assessment / Plan
74F with:
Gastroenteritis due to Campylobacter - resolved
nausea/diarrhea after eating raw seafood with Leukopenia, neutrophilia
CT suggestive of mild colitis
Associated fatigue
- BCx NGTD
- NEG Covid. C. difficile negative. Norovirus negative. Salmonella, Shigella pending, Campylobacter positive, Shiga toxin negative
ESR 21, CRP elevated to 270
rash from azithromycin, changed to levofloxacin for total 3 days directed abx therapy. Course completed
Bandemia improving.
- s/p IVF, encourage oral intake today, ADAT, Tylenol PRN, Toradol as needed, d/c Bentyl
advance to regular diet
gi sx improved
HTN
BP remains elevated SBP 150s but after discussion with family they opt to hold off further meds (hesitation due to possible reaction to amlodipine (vs azithromycin))
prn hydralazine for SBP>180 while inpt
can f/u with PCP in 1-2 weeks as outpt and have BP recheck
Rash - resolved
nonprutitic, urticarial
[place] due to azithromycin vs amlodipine
benadryl prn
stopped ccb and changed azithro as above
Mild thrombocytopenia- resolved
Plt dropping from 135-105-->93, now improved-->103 -->105-->134
Hold heparin
[place] to be from infection
Abnormal UA
2+ ketone, 2+ blood, negative RBC 2+
Creatinine is WNL
CK is within normal limit
no urinary symptoms can repete as outpt for clearance
Mild hyponatremia, asymptomatic - resolved
s/p IVF
Hypokalemia - resolved
repleted with oral K
Weakness - improved
from GI illness
PT eval - rec Home
DVT PPx
SCDs
Anticipated Discharge: Today
Subjective/Interval History
-
Date of Service: November 01, 2024
Feeling better, formed BMs, ate regular diet.
Objective Data
-
Labs:
Laboratory Results
11/01/24
07:34
WBC 4.9
Hgb 13.1
Hct 38.4
Plt Count 161 D
Sodium Pending
Potassium Pending
Chloride Pending
Carbon Dioxide Pending
BUN Pending
Creatinine Pending
Glucose Pending
Calcium Pending
Vital Signs:
Vital Signs
Temp Pulse Resp BP Pulse Ox
98.1 F 62 14 163/67 95
11/01/24 07:49 11/01/24 07:49 11/01/24 07:49 11/01/24 07:49 11/01/24 07:49
I&O
10/31/24 11/01/24 11/02/24
06:59 06:59 06:59
Intake Total 360 / 360
Balance 360 / 360
Review of Systems
-
All other systems: Reviewed and negative
Physical Exam
-
General: No Apparent Distress, Fever and Sweats
HEENT: Moist Mucous Membranes, Anicteric and PERRLA
Respiratory: Clear to Auscultation; Negative Wheezes, Rales or Rhonchi
Cardiac: Regular Rhythm and S1/S2; Negative Murmur, Rub or Gallop
GI: Soft, Nontender, Nondistended and Normal Bowel Sounds
Musculoskeletal: No Edema
Skin: Warm, Dry and Rash (erythematous urticarial rash scattered over back, extending to both arms, legs, chest, groin. Not on face or neck. ); Negative Ulcers or Lesions
Neuro: Awake and AO x 3
Hematologic / Lymphatic: No Lymphadenopathy
Psych: Calm
Data Reviewed
-
Labs: Labs Reviewed by me, Discussed with Patient and Discussed with Family
[2024-11-01 08:29] LABS: Blood Urea Nitrogen 4 mg/dl (7-17); Calcium 8.7 mg/dl (8.4-10.2); Carbon Dioxide 31 mmol/L (22-30); Chloride 103 mmol/L (98-107); Estimated Creatinine Clearance 70 ml/min; Glucose 112 mg/dl (70-99); Potassium 3.7 mmol/L (3.5-5.1); Sodium 137 mmol/L (135-145); eGFR > 60.00
[2024-11-01 08:42] LABS: Nucleated Red Blood Cells % 0 %
--- NOTE | 2024-11-01 11:37 | W.DCSUMMARY ---
Discharge Summary
Discharge Data
Date of Admission: 10/28/24
Date of Discharge: 11/01/24
Total time spent discharging patient (in min): 35
-
Pending Results: No
Hospital Course
Attending physician on day of discharge:
Jayshree Cheney MD
Admission diagnosis:
Diarrhea
Discharge diagnosis:
Campylobacter gastroenteritis
Secondary diagnoses:
Hypertension
Drug rash
Consultations:
ID
Procedures:
None
Hospital course:
74F with no problems presented with diarrhea, n/v, and fever. CT in ED showed mild colitis. She was initially treated as viral gastroenteritis but continued to worsen. Norovirus was negative, blood cultures negative. She continued to have fever
and diarrhea so abx were started and ID was consulted, abx were changed to azithromycin. Campylobacter positive. She developed a urticarial rash so azithromycin was changed to levaquin and she completed the course. Her GI symptoms improved and was
able to tolerate regular diet. Her BP was elevated and she was given amlodipine 2.5 mg but she developed some dizziness from that so it was stopped and she declined to try alternative BP meds, opting to follow up with PCP for repeat BP check.
Discharge disposition:
Home
Discharge Plan
-
Patient Disposition: Home (Routine Discharge)
Discharge Diagnosis/Procedures: Campylobacter gastroenteritis
Condition: Good
Diet: Regular
Activity: No restrictions
Activity Restrictions/Additional Instructions:
Please follow up with a primary care physician in 1-2 weeks to recheck your blood pressure. It was elevated while you were in the hospital. You had a rash after you received azithromycin which improved with loratidine (Claritin) and benadryl.
Instructions: Campylobacter infection
Referrals:
Mich Brothers MD [Family Provider, Family Practice]
Prescriptions:
No Action
No Current Medications
0
Discharge Orders:
Discharge Patient (As Directed); Ordered 11/01/24
Ordered By: Jayshree Cheney
Discharge Date and Time
Discharge Date/Time: 11/01/24 13:18
Print Language: MALAGASY
[2024-11-01 12:19] VITALS: BP 142/65
--- NOTE | 2024-11-01 13:18 | CM ---
MD entered order for discharge.
Pt said she is ready for discharge today to home. Nehemiah will drive her home.
IMM reviewed pt IMM signed on chart
Offered VN she declined need.
PLAN Home no needs
== END 2024-11-01 13:18 | disposition home or self-care (01) | DRG 872 ==
LOC: 3 WEST ACU 18:10
PROVIDERS: Physician Assistant Medical; ADMITTING PHYSICIAN Internal Medicine; ATTENDING PHYSICIAN Internal Medicine; CONSULT PHYSICIAN Internal Medicine Infectious Disease; EMERGENCY PHYSICIAN Emergency Medicine; FAMILY PHYSICIAN Family Medicine
DX: A41.9 Sepsis, unspecified organism (principal); A04.5 Campylobacter enteritis; E87.1 Hypo-osmolality and hyponatremia; I10 Essential (primary) hypertension; L27.1 Localized skin eruption due to drugs and medicaments taken internally; T36.3X5A Adverse effect of macrolides, initial encounter; D69.6 Thrombocytopenia, unspecified; D72.819 Decreased white blood cell count, unspecified; E78.5 Hyperlipidemia, unspecified; R73.03 Prediabetes; Z11.52 Encounter for screening for COVID-19; E87.6 Hypokalemia
CPT/HCPCS: 71046; 74177; 80048; 80053; 81003; 81015; 82550; 83605; 83690; 83735; 85025; 85027; 85652; 86140; 87040; 87045; 87046; 87077; 87324; 87427; 87449; 87798; 87811; 93005; 97162; Q9967